=== PATIENT | female | born 1965 | race American Indian/Alaskan Native ===

== ENCOUNTER 2018-06-06 09:42 | Inpatient (IN) | payer MEDICAID ==
[2018-06-06 11:10] LABS: Basophils % (Auto) 0.8 % (0.0-1.8); Eosinophils # (Auto) 0.1 K/mm3 (0.0-0.4); Hematocrit 44.4 % (30.3-42.9); Hemoglobin 14.9 gm/dl (10.1-14.3); Lymphocytes # (Auto) 2.4 K/mm3 (1.2-5.4); Lymphocytes % (Auto) 41.3 % (13.4-35.0); Mean Corpuscular HGB Conc 34 % (30-34); Mean Corpuscular Volume 86 fl (79-97); Monocytes # (Auto) 0.4 K/mm3 (0.0-0.8); Monocytes % (Auto) 6.3 % (0.0-7.3); Platelet Count 349 K/mm3 (140-440); Red Blood Count 5.16 M/mm3 (3.65-5.03); Red Cell Distribution Width 14.9 % (13.2-15.2)
[2018-06-06 11:14] LABS: INR 0.93 (0.87-1.13)
[2018-06-06 11:27] LABS: Partial Thromboplastin Time 27.4 Sec. (24.2-36.6)
[2018-06-06] MEDS: MORPHINE IV PRN ×3 (11:28→23:30)
[2018-06-06] MEDS: NACL 0.9% 1000 ML 1,000 ML IV SCH ×2 (11:30→23:30)
[2018-06-06 11:39] LABS: Alanine Aminotransferase 27 units/L (7-56); Albumin 3.8 g/dL (3.9-5); BUN/Creatinine Ratio 9; Blood Urea Nitrogen 7 mg/dL (7-17); Calcium 9.1 mg/dL (8.4-10.2); Hemolysis Index 16; LDL Cholesterol,Direct 181 mg/dL (50-130)
--- NOTE | 2018-06-06 11:39 | History and Physical Report ---
History of Present Illness Date of examination: 06/06/18 Date of admission: 06/06/18 10:22 Chief complaint: C/o diarrhea and fatigue History of present illness: Patient is a 53y/o female with PMH of Diverticulitis presented to my clinic with c/o abdominal pain, diarrhea, fatigue and loss of appetite for the past 5 days. Abdominal pain is cramping in nature, severity is 10/10, radiates to the back occasionally, no aggravating or relieving factors. Has had 6 loose stools in the past 1 day. No blood in stool. No N/V. No fever. Denies any weight loss or alteration in bowel habits. Direct admission was ordered as she is progressively feeling weak. Patient was advised on having colonoscopy last year but travelled out of [facility], she said, for a long time for which she could not have the colonoscopy. Past History Past Medical History: hypertension, other (diverticulitis) Social history: denies: smoking, alcohol abuse Family history: no significant family history Medications and Allergies Allergies Allergy/AdvReac Type Severity Reaction Status Date / Time No Known Allergies Allergy Verified 06/06/18 10:11 Home Medications Medication Instructions Recorded Confirmed Last Taken Type Divalproex Sodium [Depakote] 06/06/18 1 Day Ago History ~06/05/18 QUEtiapine [SEROquel] 200 mg PO 06/06/18 1 Day Ago History ~06/05/18 Quetiapine Fumarate [Seroquel] 400 mg PO QHS 06/06/18 06/06/18 1 Day Ago History ~06/05/18 Active Meds: Active Medications Sodium Chloride (Nacl 0.9% 1000 Ml) 1,000 mls @ 75 mls/hr IV DIRECT KENNY Last Admin: 06/06/18 11:30 Dose: 75 mls/hr Documented by: Ceftriaxone Sodium (Rocephin/Ns 1 Gm/50 Ml) 1 gm in 50 mls @ 100 mls/hr IV Q24HR KENNY; Protocol Metronidazole (Flagyl 500 Mg/100 Ml) 500 mg in 100 mls @ 100 mls/hr IV Q8HR KENNY; Protocol Morphine Sulfate (Morphine) 2 mg IV Q6H PRN PRN Reason: Pain, Moderate (4-6) Last Admin: 06/06/18 11:28 Dose: 2 mg Documented by: Review of systems Constitutional: Well Nourished and Well developed. Head: NC/ AT Eyes: Denies any visual impairments. No discharge from the eyes Nose: Denies any rhinorrhea or epistaxis Throats: Denies any post nasal drainage. Ears: Denies any hearing deficits Cardiovascular system: Denies any chest pain, shortness of breath, orthopnea, paroxysmal nocturnal dyspnea, or palpitation. Respiratory system: Denies any cough, difficulty breathing, wheezing, pleuritic chest pain, Gastrointestinal system: As abdominal pain with diarrhea. No, nausea vomiting, hematemesis or melena. Neurological system: Denies any headache, slurred speech, facial droop, lateralizing weakness Genitalia system: Denies any dysuria, urinary frequency or urgency, urethral discharge Skin: No rashes, hyperpigmented spots. Hematological: Denies any cervical tenderness hemorrhages or petechia. Immunological: Denies any multiple septic spots, Lymphatic: Denies any generalized lymphadenopathy. Endocrine: Denies any polyuria, polydipsia, polyphagia. No heat or cold intolerance. Musculoskeletal system: No joint pain or swelling. Psych: No visual, tactile, auditory or hallucination Exam - Physical Exam Narrative exam: Constitutional: Well-nourished well-developed. In no distress Head: Normocephalic atraumatic Eyes: Pupils are equal round and reactive to light Nose: No enlarged turbinates, no septal deviation. Mouth: Moist mucous membranes. Neck: Supple no thyromegaly. No bruit. No JVD Heart: Regular rate and rhythm, S1-S2 normal. No rubs murmurs or gallop Lungs: Clear to auscultation bilaterally. no rales or rhonchi Abdomen: Soft, nontender. Bowel sound are present. Extremities: No edema, no cyanosis, no clubbing. Neuro: Alert oriented Oriented x3. No focal sensory or motor deficit. Skin: No rashes or hyperpigmented spots Musculoskeletal system: No joint pain or swelling Hematological: No petechia or subcutanous hemorrhages. Immunological: No multiple septic spots on the skin Lymphatic: No generalized lymphadenopathy Psychiatry: Euthymic. Calm. Results - Labs CBC & Chem 7: 06/07/18 04:41 06/07/18 04:41 Labs: Abnormal lab results 06/06/18 Range/Units 10:37 RBC 5.16 H (3.65-5.03) M/mm3 Hgb 14.9 H (10.1-14.3) gm/dl Hct 44.4 H (30.3-42.9) % Lymph % (Auto) 41.3 H (13.4-35.0) % Assessment and Plan Patient is a 53y/o female with PMH of Diverticulitis presented to my clinic with c/o abdominal pain, diarrhea, fatigue and loss of appetite for the past 5 days. Abdominal pain is cramping in nature, severity is 10/10, radiates to the back occasionally, no aggravating or relieving factors. Has had 6 loose stools in the past 1 day. No blood in stool. No N/V. No fever. Denies any weight loss or alteration in bowel habits. Direct admission was ordered as she is progressively feeling weak. -Abdominal pain CT scan shows evidence of a transverse colon lesion measuring 2.7 cm Obtain GI consult - Diverticulosis with mild diverticulitis Continue with IV Levaquin and Flagyl - Diarrhea Has had 6-7 loose bowel motions NPO, IVF No hematochezia Stool studies - Severe hyperlipidemia Place patient on statins - Hyperglycemia Obtain A1c Glasses, and her diet - DVT prophylaxis Subcutaneous heparin Spent over 35 minutes during this admission process involving in direct patient care, and review of laboratory and radiological data and discussing management plan with the patient
[2018-06-06 12:00] LABS: Chol/HDL Ratio 6.96 %; HDL Cholesterol 33 mg/dL (40-59)
--- NOTE | 2018-06-06 14:43 | Cat Scan Report ---
FINAL REPORT PROCEDURE: CT ABDOMEN PELVIS WO CON TECHNIQUE: Computerized axial tomography of the abdomen and pelvis was performed without intravenous contrast. This study is performed without intravascular contrast material and its sensitivity for ab dominal and pelvic pathology, including neoplasms, inflammation, abscess, free fluid, thrombosis, art erial dissection and infarction, is reduced compared with a contrast enhanced study. HISTORY: ACUTE DIVERTICULITIS, ABD PAIN COMPARISON: No prior studies are available for comparison. FINDINGS: Lower Lung li: There is minimal emphysematous changes seen in the lung bases as well as a small a mount of dependent atelectasis. Upper Abdomen: The liver, gallbladder, the adrenal glands, the pancreas and spleen are unremarkable. Kidneys, Ureters and Urinary bladder: There is a nonobstructing 3 millimeter calculus midportion left kidney. The kidneys, the ureters and urinary bladder otherwise are unremarkable. Retroperitoneum: Atherosclerotic changes are seen in the abdominal aorta. No aneurysm is visualized. Nonspecific subcentimeter lymph nodes are seen in the retroperitoneum. No pathologically enlarged lym ph nodes are identified. Bowel: Mild diverticulosis seen in the sigmoid colon without evidence of diverticulitis. There also a few scattered diverticuli in the descending colon. On axial image number 43 series 2 and a few of th e adjacent images there is a 2.7 centimeter long segment of narrowing in the transverse colon just pr oximal to the splenic flexure. The simon appear to be diffusely thickened producing an apple-core typ e lesion. I cannot exclude malignancy in the distal transverse colon. This is also visualized on sagi ttal reconstruction 67 series 601. I do not see evidence of bowel obstruction. Bowel loops otherwise are unremarkable. No ascites or free intraperitoneal gas is seen. An abscess is not identified. The a ppendix is not visualized. Reproductive organs: Uterus is surgically absent. No abnormal adnexal masses are seen. Other: No acute bony abnormalities are identified. IMPRESSION: Mild colonic diverticulosis as described. I do not see evidence of diverticulitis. Abnormal appearance distal transverse colon just proximal to the splenic flexure as described. There appears to be an apple-core type lesion which can be associated with malignancy. Further evaluation i s recommended. Consider barium enema or colonoscopy for further evaluation. Prior hysterectomy. Small nonobstructing calculus left kidney. Minimal emphysematous changes seen in the lung bases..
[2018-06-06] MEDS: ZOFRAN IV PRN ×2 (14:45→21:53)
[2018-06-06] MEDS: ROCEPHIN/NS 1 GM/50 ML 1 GM/50 ML BAG IV SCH (14:46)
[2018-06-06] MEDS: FLAGYL 500 MG/100 ML 500 MG/100 ML BAG IV SCH ×2 (14:49→21:53)
[2018-06-06] MEDS ORDERED: ZOFRAN IV PRN (21:51)
[2018-06-06] MEDS: PEPCID IV SCH (23:30)
[2018-06-07] MEDS: FLAGYL 500 MG/100 ML 500 MG/100 ML BAG IV SCH ×3 (05:55→21:13)
[2018-06-07 06:07] LABS: Hematocrit 32.9 % (30.3-42.9); Hemoglobin 10.9 gm/dl (10.1-14.3); Mean Corpuscular HGB Conc 33 % (30-34); Mean Corpuscular Volume 87 fl (79-97); Platelet Count 254 K/mm3 (140-440); Red Cell Distribution Width 14.7 % (13.2-15.2)
[2018-06-07] MEDS: NACL 0.9% 1000 ML 1,000 ML IV SCH ×2 (06:08→17:15)
[2018-06-07] MEDS: MORPHINE IV PRN ×3 (06:08→21:11)
[2018-06-07 06:33] LABS: Alanine Aminotransferase 18 units/L (7-56); Albumin 2.8 g/dL (3.9-5); BUN/Creatinine Ratio 11; Blood Urea Nitrogen 8 mg/dL (7-17); Calcium 7.3 mg/dL (8.4-10.2); Hemolysis Index 26
[2018-06-07 07:51] LABS: Basophils % (Manual) 0 % (0.0-1.8); Myelocytes # (Manual) 0.1 K/mm3; Platelet Estimate Appe; Total Cells Counted 100
--- NOTE | 2018-06-07 08:18 | Progress Note ---
Assessment and Plan Patient is a 53y/o female with PMH of Diverticulitis presented to my clinic with c/o abdominal pain, diarrhea, fatigue and loss of appetite for the past 5 days. Abdominal pain is cramping in nature, severity is 10/10, radiates to the back occasionally, no aggravating or relieving factors. Has had 6 loose stools in the past 1 day. No blood in stool. No N/V. No fever. Denies any weight loss or alteration in bowel habits. Direct admission was ordered as she is progressively feeling weak. -Abdominal pain CT scan shows evidence of a transverse colon lesion measuring 2.7 cm Obtain GI consult for possible colonoscopy - Diverticulosis without diverticulitis Continue with IV Levaquin and Flagyl - Diarrhea Has had 6-7 loose bowel motions NPO, IVF No hematochezia Stool studies - Hypokalemia Supplement rechek K and - Severe hyperlipidemia Place patient on statins - T2DM - new onst A1c 6.6 % SSI consistent CHO diet Diabetic education - DVT prophylaxis Subcutaneous heparin Spent over 32 minutes during this Subjective Date of service: 06/07/18 Principal diagnosis: lower Abdominal pain and diarrhea Interval history: No more diarrhea Objective - Exam Narrative Exam: Constitutional: Well-nourished well-developed. In no distress Head: Normocephalic atraumatic Eyes: Pupils are equal round and reactive to light Nose: No enlarged turbinates, no septal deviation. Mouth: Moist mucous membranes. Neck: Supple no thyromegaly. No bruit. No JVD Heart: Regular rate and rhythm, S1-S2 normal. No rubs murmurs or gallop Lungs: Clear to auscultation bilaterally. no rales or rhonchi Abdomen: Soft, lower abdominal tendernes. Bowel sound are present. Extremities: No edema, no cyanosis, no clubbing. Neuro: Alert oriented Oriented x3. No focal sensory or motor deficit. Skin: No rashes or hyperpigmented spots Musculoskeletal system: No joint pain or swelling Hematological: No petechia or subcutanous hemorrhages. Immunological: No multiple septic spots on the skin Lymphatic: No generalized lymphadenopathy Psychiatry: Euthymic. Calm. - Constitutional Vitals: Vital Signs - 12hr 06/06/18 06/07/18 06/07/18 20:40 00:13 05:58 Temperature 98.2 F 98.2 F 98.2 F Pulse Rate 95 H 96 H 87 Respiratory 18 18 18 Rate Blood Pressure 106/80 111/69 114/71 O2 Sat by Pulse 100 96 100 Oximetry - Labs CBC & Chem 7: 06/08/18 04:52 06/08/18 04:52 Labs: Abnormal lab results 06/06/18 06/06/18 06/06/18 Range/Units 10:37 10:37 10:38 WBC (4.5-11.0) K/mm3 RBC 5.16 H (3.65-5.03) M/mm3 Hgb 14.9 H (10.1-14.3) gm/dl Hct 44.4 H (30.3-42.9) % Lymph % (Auto) 41.3 H (13.4-35.0) % Lymphocytes % (Manual) (13.4-35.0) % Potassium (3.6-5.0) mmol/L Chloride (98-107) mmol/L Carbon Dioxide (22-30) mmol/L Glucose 124 H (65-100) mg/dL Hemoglobin A1c 6.6 H (4-6) % Calcium (8.4-10.2) mg/dL Total Protein (6.3-8.2) g/dL Albumin 3.8 L (3.9-5) g/dL Triglycerides 229 H (2-149) mg/dL Cholesterol 230 H (50-199) mg/dL LDL Cholesterol Direct 181 H (50-130) mg/dL HDL Cholesterol 33 L (40-59) mg/dL 06/07/18 06/07/18 Range/Units 04:41 04:41 WBC 4.4 L (4.5-11.0) K/mm3 RBC (3.65-5.03) M/mm3 Hgb (10.1-14.3) gm/dl Hct (30.3-42.9) % Lymph % (Auto) (13.4-35.0) % Lymphocytes % (Manual) 46.0 H (13.4-35.0) % Potassium 3.4 L (3.6-5.0) mmol/L Chloride 110.4 H (98-107) mmol/L Carbon Dioxide 20 L (22-30) mmol/L Glucose 107 H (65-100) mg/dL Hemoglobin A1c (4-6) % Calcium 7.3 L D (8.4-10.2) mg/dL Total Protein 5.3 L D (6.3-8.2) g/dL Albumin 2.8 L (3.9-5) g/dL Triglycerides (2-149) mg/dL Cholesterol (50-199) mg/dL LDL Cholesterol Direct (50-130) mg/dL HDL Cholesterol (40-59) mg/dL
[2018-06-07] MEDS ORDERED: D50W (25GM) Syringe IV PRN (08:23)
[2018-06-07] MEDS: ROCEPHIN/NS 1 GM/50 ML 1 GM/50 ML BAG IV SCH (09:38)
[2018-06-07] MEDS: PEPCID IV SCH (09:38)
[2018-06-07] MEDS: HEPARIN SUB-Q SCH ×2 (09:39→13:19)
[2018-06-07] MEDS: KCL 10MEQ/100ML 10 MEQ/100 ML BAG IV SCH ×3 (09:46→12:00)
[2018-06-07] MEDS: HumaLOG SUB-Q SCH ×3 (11:30→22:00)
--- NOTE | 2018-06-07 12:43 | Gastroenterology Consultation ---
Addendum entered and electronically signed by ROBYN BERKOWITZ MD 06/07/18 16:16: Patient seen and examined on 06/07/2018. 53 yo female with h/o diverticulitis and HTN admitted for abdominal pain. CT notable for abnormal lesion in transverse colon. Will plan for colonoscopy to rule out malignancy. Original Note: History of Present Illness - Reason for Consult Consult date: 06/07/[address], colon lesion Requesting physician: SIDDHARTHA MENDEZ - History of Present Illness Patient is a 53 y/o female with PMH of diverticulitis and HTN who presented with c/o abdominal pain, diarrhea, fatigue, and loss of appetite. Upon admission, abd CT showed an abnormal lesion in distal transverse colon concerning for malignancy to which GI has been consulted. This morning patient was resting in bed w/o acute distress. She reports lower abdominal pain described as cramping x approximately 2 months. Admits to chronic constipation for several years with BM x 1/day, but states stools are now loose (no change in frequency; last BM was 2 days ago). No recent abx therapy or ill contacts, but recent traveled back from [place] on 05/31. Denies fever, CP, SOB, wt loss, N/V, or signs of bleeding. No previous colonoscopy. No hx of IBD. No known Fhx of colon cancer. Past History Past Medical History: hypertension, other (diverticulitis) Social history: denies: smoking, alcohol abuse Family history: no significant family history Medications and Allergies Allergies Allergy/AdvReac Type Severity Reaction Status Date / Time No Known Allergies Allergy Verified 06/06/18 10:11 Home Medications Medication Instructions Recorded Confirmed Last Taken Type Divalproex Sodium [Depakote] 06/06/18 1 Day Ago History ~06/05/18 QUEtiapine [SEROquel] 200 mg PO 06/06/18 1 Day Ago History ~06/05/18 Quetiapine Fumarate [Seroquel] 400 mg PO QHS 06/06/18 06/06/18 1 Day Ago History ~06/05/18 Active Meds: Active Medications Atorvastatin Calcium (Lipitor) 40 mg PO QHS [facility] Last Admin: 06/06/18 21:53 Dose: 40 mg Documented by: Dextrose (D50w (25gm) Syringe) 50 ml IV PRN PRN PRN Reason: Hypoglycemia Divalproex Sodium (Depakote Dr) 125 mg PO BID [facility] Famotidine (Pepcid) 20 mg IV QDAY [facility] Last Admin: 06/07/18 09:38 Dose: 20 mg Documented by: Heparin Sodium (Porcine) (Heparin) 5,000 unit SUB-Q Q8HR [facility] Last Admin: 06/07/18 09:39 Dose: 5,000 unit Documented by: Sodium Chloride (Nacl 0.9% 1000 Ml) 1,000 mls @ 75 mls/hr IV DIRECT [facility] Last Admin: 06/07/18 06:08 Dose: 75 mls/hr Documented by: Ceftriaxone Sodium (Rocephin/Ns 1 Gm/50 Ml) 1 gm in 50 mls @ 100 mls/hr IV Q24HR [facility]; Protocol Last Admin: 06/07/18 09:38 Dose: 100 mls/hr Documented by: Metronidazole (Flagyl 500 Mg/100 Ml) 500 mg in 100 mls @ 100 mls/hr IV Q8HR [facility]; Protocol Last Admin: 06/07/18 05:55 Dose: 100 mls/hr Documented by: Insulin Human Lispro (Humalog) 0 unit SUB-Q ACHS [facility]; Protocol Last Admin: 06/07/18 11:30 Dose: Not Given Documented by: Morphine Sulfate (Morphine) 2 mg IV Q6H PRN PRN Reason: Pain, Moderate (4-6) Last Admin: 06/07/18 06:08 Dose: 2 mg Documented by: Ondansetron HCl (Zofran) 4 mg IV Q6H PRN PRN Reason: Nausea And Vomiting Polyethylene Glycol/Electrolytes (Golytely) 4,000 ml PO ONCE ONE Stop: 06/07/18 14:01 Potassium Chloride (K-Dur) 40 meq PO BID [facility] Quetiapine Fumarate (Seroquel) 400 mg PO QHS [facility] Last Admin: 06/06/18 23:30 Dose: 400 mg Documented by: Quetiapine Fumarate (Seroquel) 200 mg PO DAILY [facility] Last Admin: 06/07/18 09:38 Dose: 200 mg Documented by: medications reviewed/updated as required Review of Systems - Review of Systems All systems: negative Constitutional: fatigue, weakness, poor appetite Gastrointestinal: abdominal pain (cramping), other (loose stool) Exam - Constitutional Vital Signs: Temp Pulse Resp BP Pulse Ox 98.2 F 87 18 114/71 100 06/07/18 05:58 06/07/18 05:58 06/07/18 05:58 06/07/18 05:58 06/07/18 05:58 General appearance: no acute distress - EENT Eyes: PERRL, EOM intact ENT: hearing intact - Respiratory Respiratory: bilateral: CTA - Cardiovascular Rhythm: regular Heart Sounds: Present: S1 & S2 - Gastrointestinal General gastrointestinal: Present: soft, non-tender, non-distended, normal bowel sounds - Neurologic Neurological: alert and oriented x3 - Labs CBC & Chem 7: 06/07/18 04:41 06/07/18 04:41 Lab Results: Laboratory Results - last 24 hr 06/06/18 06/06/18 06/07/18 10:37 10:38 04:41 WBC 4.4 L RBC 3.80 Hgb 10.9 D Hct 32.9 D MCV 87 MCH 29 MCHC 33 RDW 14.7 Plt Count 254 Lymph % (Auto) Animal Husbandry Worker Add Manual Diff Complete Total Counted 100 Seg Neutrophils % Animal Husbandry Worker Seg Neuts % (Manual) 42.0 Band Neutrophils % 0 Lymphocytes % (Manual) 46.0 H Reactive Lymphs % (Man) 0 Monocytes % (Manual) 3.0 Eosinophils % (Manual) 4.0 Basophils % (Manual) 0 Metamyelocytes % 2.0 Myelocytes % 3.0 Promyelocytes % 0 Blast Cells % 0 Nucleated RBC % Not Reportable Seg Neutrophils # Man 1.8 Band Neutrophils # 0.0 Lymphocytes # (Manual) 2.0 Abs React Lymphs (Man) 0.0 Monocytes # (Manual) 0.1 Eosinophils # (Manual) 0.2 Basophils # (Manual) 0.0 Metamyelocytes # 0.1 Myelocytes # 0.1 Promyelocytes # 0.0 Blast Cells # 0.0 WBC Morphology Not Reportable Hypersegmented Neuts Not Reportable Hyposegmented Neuts Not Reportable Hypogranular Neuts Not Reportable Smudge Cells Not Reportable Toxic Granulation Not Reportable Toxic Vacuolation Not Reportable Dohle Bodies Not Reportable Pelger-Huet Anomaly Not Reportable Phil Rods Not Reportable Platelet Estimate Appe Clumped Platelets Not Reportable Plt Clumps, EDTA Not Reportable Large Platelets Not Reportable Giant Platelets Not Reportable Platelet Satelliting Not Reportable Plt Morphology Comment Not Reportable RBC Morphology Not Reportable Dimorphic RBCs Not Reportable Polychromasia Not Reportable Hypochromasia Not Reportable Poikilocytosis Not Reportable Anisocytosis Not Reportable Microcytosis Few Macrocytosis Not Reportable Spherocytes Not Reportable Pappenheimer Bodies Not Reportable Sickle Cells Not Reportable Target Cells Not Reportable Tear Drop Cells Not Reportable Ovalocytes Not Reportable Helmet Cells Not Reportable [place] Holiday Bodies Not Reportable [place] Rings Not Reportable Kedar Cells Not Reportable Bite Cells Not Reportable Crenated Cell Not Reportable Elliptocytes Not Reportable Acanthocytes (Spur) Not Reportable Rouleaux Not Reportable Hemoglobin C Crystals Not Reportable Schistocytes Not Reportable Malaria parasites Not Reportable Ming Bodies Not Reportable Hem Pathologist Commnt No Sodium Potassium Chloride Carbon Dioxide Anion Gap BUN Creatinine Estimated GFR BUN/Creatinine Ratio Glucose POC Glucose Hemoglobin A1c 6.6 H Calcium Total Bilirubin AST ALT Alkaline Phosphatase Total Protein Albumin Albumin/Globulin Ratio Amylase 83 Lipase 06/07/18 06/07/18 04:41 11:18 WBC RBC Hgb Hct MCV MCH MCHC RDW Plt Count Lymph % (Auto) Add Manual Diff Total Counted Seg Neutrophils % Seg Neuts % (Manual) Band Neutrophils % Lymphocytes % (Manual) Reactive Lymphs % (Man) Monocytes % (Manual) Eosinophils % (Manual) Basophils % (Manual) Metamyelocytes % Myelocytes % Promyelocytes % Blast Cells % Nucleated RBC % Seg Neutrophils # Man Band Neutrophils # Lymphocytes # (Manual) Abs React Lymphs (Man) Monocytes # (Manual) Eosinophils # (Manual) Basophils # (Manual) Metamyelocytes # Myelocytes # Promyelocytes # Blast Cells # WBC Morphology Hypersegmented Neuts Hyposegmented Neuts Hypogranular Neuts Smudge Cells Toxic Granulation Toxic Vacuolation Dohle Bodies Pelger-Huet Anomaly Phil Rods Platelet Estimate Clumped Platelets Plt Clumps, EDTA Large Platelets Giant Platelets Platelet Satelliting Plt Morphology Comment RBC Morphology Dimorphic RBCs Polychromasia Hypochromasia Poikilocytosis Anisocytosis Microcytosis Macrocytosis Spherocytes Pappenheimer Bodies Sickle Cells Target Cells Tear Drop Cells Ovalocytes Helmet Cells [place] Holiday Bodies [place] Rings Kedar Cells Bite Cells Crenated Cell Elliptocytes Acanthocytes (Spur) Rouleaux Hemoglobin C Crystals Schistocytes Malaria parasites Ming Bodies Hem Pathologist Commnt Sodium 141 Potassium 3.4 L Chloride 110.4 H Carbon Dioxide 20 L Anion Gap 14 BUN 8 Creatinine 0.7 Estimated GFR > 60 BUN/Creatinine Ratio 11 Glucose 107 H POC Glucose 124 H Hemoglobin A1c Calcium 7.3 L D Total Bilirubin < 0.20 AST 14 ALT 18 Alkaline Phosphatase 64 Total Protein 5.3 L D Albumin 2.8 L Albumin/Globulin Ratio 1.1 Amylase Lipase Assessment and Plan 1.abnormal CT 2.colon lesion? 3.abdominal pain -afebrile -WBC WNL -H/H WNL (10.9/32.9) -abd CT showed mild diverticulosis (no evidence of diverticulitis) and an abnormal lesion in distal transverse colon concerning for malignancy -clinically patient is stable. Reports continued mild lower abd pain described as cramping. Denies N/V or signs of bleeding. -will schedule for a colonoscopy tomorrow for further evaluation -clear liquids today, then NPO after MN -continue supportive care -will follow 4.loose stool -improving -stool studies pending
[2018-06-07] MEDS: K-DUR PO SCH ×2 (13:18→21:11)
[2018-06-07] MEDS ORDERED: GOLYTELY PO ONE (14:00)
[2018-06-07] MEDS ORDERED: NON-FORMULARY (Quetiapine Fumarate [Seroquel] 400 MG) PO SCH (22:00)
[2018-06-08] MEDS: MORPHINE IV PRN ×4 (03:26→22:53)
[2018-06-08] MEDS: NACL 0.9% 1000 ML 1,000 ML IV SCH ×2 (03:26→12:04)
[2018-06-08 05:25] LABS: Basophils % (Auto) 0.8 % (0.0-1.8); Eosinophils # (Auto) 0.1 K/mm3 (0.0-0.4); Eosinophils % (Auto) 2.5 % (0.0-4.3); Hematocrit 37.7 % (30.3-42.9); Hemoglobin 12.9 gm/dl (10.1-14.3); Lymphocytes # (Auto) 2.5 K/mm3 (1.2-5.4); Lymphocytes % (Auto) 52.3 % (13.4-35.0); Mean Corpuscular HGB Conc 34 % (30-34); Mean Corpuscular Volume 85 fl (79-97); Monocytes # (Auto) 0.4 K/mm3 (0.0-0.8); Monocytes % (Auto) 7.8 % (0.0-7.3); Platelet Count 328 K/mm3 (140-440); Red Blood Count 4.43 M/mm3 (3.65-5.03); Red Cell Distribution Width 14.9 % (13.2-15.2)
[2018-06-08 06:44] LABS: Alanine Aminotransferase 21 units/L (7-56); Albumin 3.1 g/dL (3.9-5); BUN/Creatinine Ratio 5; Blood Urea Nitrogen 4 mg/dL (7-17); Calcium 8.3 mg/dL (8.4-10.2); Hemolysis Index 4
[2018-06-08] MEDS: HEPARIN SUB-Q SCH ×4 (06:47→21:21)
[2018-06-08] MEDS: FLAGYL 500 MG/100 ML 500 MG/100 ML BAG IV SCH ×3 (06:54→21:21)
[2018-06-08] MEDS: HumaLOG SUB-Q SCH ×4 (07:30→22:00)
--- NOTE | 2018-06-08 08:52 | Progress Note ---
Assessment and Plan Patient is a 53y/o female with PMH of Diverticulitis presented to my clinic with c/o abdominal pain, diarrhea, fatigue and loss of appetite for the past 5 days. Abdominal pain is cramping in nature, severity is 10/10, radiates to the back occasionally, no aggravating or relieving factors. Has had 6 loose stools in the past 1 day. No blood in stool. No N/V. No fever. Denies any weight loss or alteration in bowel habits. Direct admission was ordered as she is progressively feeling weak. -Abdominal pain CT scan shows evidence of a transverse colon lesion measuring 2.7 cm Obtain GI consult for possible colonoscopy - Transverse colonic lesion concerning for malignancy For colonoscopy. GI following - Diverticulosis without mild diverticulitis Continue with IV Levaquin and Flagyl - Diarrhea - improving No hematochezia Stool studies pending. pt not having bowel movt yet - Hypokalemia -corrrected Supplement rechek K and - Severe hyperlipidemia Patient on statins - T2DM - new onset A1c 6.6 % SSI consistent CHO diet Diabetic education - Tobacco abuse Tobacco cessation counselling was done - DVT prophylaxis Subcutaneous heparin Spent over 30 minutes during this encounter Subjective Date of service: 06/08/18 Principal diagnosis: lower Abdominal pain and diarrhea Interval history: No more diarrhea. Still having abdominal pain Objective - Exam Narrative Exam: Constitutional: Well-nourished well-developed. In no distress Head: Normocephalic atraumatic Eyes: Pupils are equal round and reactive to light Nose: No enlarged turbinates, no septal deviation. Mouth: Moist mucous membranes. Neck: Supple no thyromegaly. No bruit. No JVD Heart: Regular rate and rhythm, S1-S2 normal. No rubs murmurs or gallop Lungs: Clear to auscultation bilaterally. no rales or rhonchi Abdomen: Soft, lower abdominal tendernes. Bowel sound are present. Extremities: No edema, no cyanosis, no clubbing. Neuro: Alert oriented Oriented x3. No focal sensory or motor deficit. Skin: No rashes or hyperpigmented spots Musculoskeletal system: No joint pain or swelling Hematological: No petechia or subcutanous hemorrhages. Immunological: No multiple septic spots on the skin Lymphatic: No generalized lymphadenopathy Psychiatry: Euthymic. Calm. - Constitutional Vitals: Vital Signs - 12hr 06/07/18 06/07/1806/07/19 21:11 21:41 22:00 Temperature Pulse Rate Respiratory 20 20 20 Rate Respiratory 20 Rate [Abdomen] Blood Pressure O2 Sat by Pulse Oximetry 06/07/18 06/08/18 06/08/18 22:21 03:26 03:56 Temperature 98.1 F Pulse Rate 94 H Respiratory 20 20 20 Rate Respiratory Rate [Abdomen] Blood Pressure 97/56 O2 Sat by Pulse 94 Oximetry 06/08/18 05:08 Temperature 98.1 F Pulse Rate 83 Respiratory 18 Rate Respiratory Rate [Abdomen] Blood Pressure 114/68 O2 Sat by Pulse 95 Oximetry - Labs CBC & Chem 7: 06/08/18 04:52 06/08/18 04:52 Labs: Abnormal lab results 06/07/18 06/07/18 06/08/18 Range/Units 11:18 20:39 04:52 Lymph % (Auto) 52.3 H (13.4-35.0) % [place] % (Auto) 7.8 H (0.0-7.3) % Seg Neutrophils % 36.6 L (40.0-70.0) % Chloride (98-107) mmol/L BUN (7-17) mg/dL POC Glucose 124 H 131 H (70-105) Calcium (8.4-10.2) mg/dL Total Protein (6.3-8.2) g/dL Albumin (3.9-5) g/dL 06/08/18 Range/Units 04:52 Lymph % (Auto) (13.4-35.0) % [place] % (Auto) (0.0-7.3) % Seg Neutrophils % (40.0-70.0) % Chloride 109.6 H (98-107) mmol/L BUN 4 L (7-17) mg/dL POC Glucose (70-105) Calcium 8.3 L (8.4-10.2) mg/dL Total Protein 5.9 L (6.3-8.2) g/dL Albumin 3.1 L (3.9-5) g/dL
[2018-06-08] MEDS: ROCEPHIN/NS 1 GM/50 ML 1 GM/50 ML BAG IV SCH (09:52)
[2018-06-08] MEDS: PEPCID IV SCH (09:53)
[2018-06-08] MEDS: K-DUR PO SCH ×2 (10:00→21:20)
[2018-06-08] MEDS ORDERED: NACL 0.9% 1000 ML 1,000 ML IV SCH (14:00)
[2018-06-08] MEDS ORDERED: DIPRIVAN 10 MG/ML IV ONE ×3 (15:32→15:48)
[2018-06-08] MEDS ORDERED: VERSED ONE (15:32)
[2018-06-08] MEDS ORDERED: XYLOCAINE 2% INFILTRATI ONE (15:32)
--- NOTE | 2018-06-08 16:44 | Anesthesia Day of Surgery ---
Anesthesia Day of Surgery - Day of Surgery Patient Examined: Yes Patient H&P Reviewed: Yes Patient is NPO: Yes Beta Blockers: No Cardiac Clearance: No Pulmonary Clearance: No
--- NOTE | 2018-06-08 16:44 | Anesthesia Consultation ---
Anesthesia Consult and Med Hx Date of service: 06/08/18 - Airway Anesthetic Teeth Evaluation: Poor ROM Head & Neck: Adequate Mental/Hyoid Distance: Adequate Mallampati Class: Class II Intubation Access Assessment: Probably Good - Pulmonary Exam CTA: Yes - Cardiac Exam Cardiac Exam: No Murmur - Pre-Operative Health Status ASA Pre-Surgery Classification: ASA3 Proposed Anesthetic Plan: MAC - Pulmonary Hx Smoking: Yes Hx Asthma: No Hx Pneumonia: No - Endocrine Hx End Stage Renal Disease: No Hx Non-Insulin Dependent Diabetes: Yes - Other Systems Hx Cancer: No
[2018-06-08] MEDS ORDERED: MORPHINE ONE (16:58)
--- NOTE | 2018-06-08 17:02 | Operative Report ---
Operative Report Operative Report: Date of procedure: 06/08/2018 Preprocedure diagnosis: abdominal pain, abnormal CT abdomen Post procedure diagnosis: transverse colon polyp Procedure: Colonoscopy with snare polypectomy Endoscopist: Madi Taylor MD Anesthesia: Monitored anesthesia care per anesthesia department Estimated blood loss: 0 Medications: Monitored anesthesia care. See separate report by anesthesia for details. After careful discussion of the nature and purpose of the procedure as well as details of the technique risks benefits and alternatives the patient gave consent. Please see recent history and physical from the office. The patient was placed in the left lateral decubitus position and medicated per anesthesia. A rectal exam was performed sphincter tone was normal there were no masses palpable. External hemorrhoids seen on external exam. The [employer] 570 scope was passed transanally and advanced under continuous direct vision without difficulty to the cecum. The prep quality was good. Findings: 1. A 7 mm sessile polyp in the cecum removed with cold snare polypectomy. 2. There were two 6-7 mm sessile polyps in the transverse colon removed with cold snare polypectomy. 3. There was no large lesions identified in the distal transverse colon proximal to the splenic flexure as described in the CT scan. 4. In the descending colon, there were four 6-7 mm sessile colon polyp removed with cold snare polypectomy. One 8 mm sessile polyp was removed with hot snare polypectomy and one endoclip was placed to prevent bleeding. 5. There was a 1 cm semipedunculated polyp, which could not be removed after several attempts with snare due to angulation. Multiple biopsies were obtained. This was adjacent to the endoclip placement site. 6. There were multiple 6-7 mm sessile polyps in the sigmoid colon. Two of them were removed with cold snare polypectomy. 7. Multiple sessile rectal polyps noted. Rest of the polyps could not be removed due to prolonged procedure time under anesthesia. 8. Internal hemorrhoids noted. The procedure was well-tolerated overall and the patient was observed in re covery. Conclusions: 1. A small polyp in the cecum removed with cold snare polypectomy. 2. There were two small polyps in the transverse colon removed with cold snare polypectomy. 3. There was no large lesions identified in the distal transverse colon proximal to the splenic flexure as described in the CT scan. 4. In the descending colon, there were four small colon polyp removed with cold snare polypectomy. One 8 mm sessile polyp was removed with hot snare polypectomy and one endoclip was placed to prevent bleeding. 5. There was a 1 cm semipedunculated polyp, which could not be removed after several attempts with snare due to angulation. Multiple biopsies were obtained. This was adjacent to the endoclip placement site. 6. There were multiple 6-7 mm sessile polyps in the sigmoid colon. Two of them were removed with cold snare polypectomy. 7. Multiple sessile rectal polyps noted. Rest of the polyps could not be removed due to prolonged procedure time under anesthesia. 8. Internal hemorrhoids noted. Plan: 1. Resume diet. 2. Follow up on the pathology results. 3. Ok for discharge per GI standpoint. 4. Will need follow up in outpatient GI clinic for repeat colonoscopy.
--- NOTE | 2018-06-08 21:53 | Discharge Summary ---
Providers - Providers Date of Admission: 06/06/18 10:22 Date of discharge: 06/08/18 Attending physician: SIDDHARTHA MENDEZ 06/06/18 18:09 Consult to Physician [CONS] Routine Comment: Consulting Provider: JUNIOR LANDERS Physician Instructions: Reason For Exam: Transverse colon lesion per CT abdomen and pelvis Primary care physician: SIDDHARTHA MENDEZ Hospitalization Reason for admission: Abdomninal pain with Pertinent studies: CT abdominal and pelvis that showed lesion in the transverse colon Procedures: Colonocopy iwth removal of multiple colonoc polyps. No mass seen in the transverse colon per CT Hospital course: Patient is a 53y/o female with PMH of Diverticulitis presented to my clinic with c/o abdominal pain, diarrhea, fatigue and loss of appetite for the past 5 days. Abdominal pain is cramping in nature, severity is 10/10, radiates to the back occasionally, no aggravating or relieving factors. Has had 6 loose stools in the past 1 day. No blood in stool. No N/V. No fever. Denies any weight loss or alteration in bowel habits. Direct admission was ordered as she is p rogressively feeling weak. Patient was advised on having colonoscopy last year but [place], she said, for a long time for which she could not have the colonoscopy. On admission pt was place on clear liquids, IVF b/c of the diarrhea, iv Levaquin an flagyl. Stool studies studies were ordered as well as CT abdomen and pelvis. Pt was not able to have any more bowel movement after admisision. CT report was remarkable for suspecious mass in the transverse colon . GI consult was obtained. Colonoscopy was done. Multiple sessile polyps identified in the transverse colon with no mass. A semipedunculated polyp was identified in the sigmoid colon. Cold snared polypectomyies were done. Few could not be removed as a result of prolonged time of procedure. GI recommended out pt f/u for biopsy report and removal of the remaining polyps. Abdominal pain had resolved as well as the diarrhea. Pt is therefore being discharged to f/u with me in 3-5day and the GI in 7 days. Tobacco cessation counselling was done. Disposition: - TO HOME OR SELFCARE Time spent for discharge: >35 min - Discharge Diagnoses (1) Colonic mass Status: Acute (2) Abdominal pain Status: Acute (3) Diarrhea Status: Acute (4) Diabetes mellitus Status: Acute (5) Tobacco use disorder Status: Acute (6) Hypokalemia Status: Acute Core Measure Documentation - Palliative Care Palliative Care/ Comfort Measures: Not Applicable - Core Measures Any of the following diagnoses?: none Exam - Physical Exam Narrative exam: Constitutional: Well-nourished well-developed. In no distress Head: Normocephalic atraumatic Eyes: Pupils are equal round and reactive to light Nose: No enlarged turbinates, no septal deviation. Mouth: Moist mucous membranes. Neck: Supple no thyromegaly. No bruit. No JVD Heart: Regular rate and rhythm, S1-S2 normal. No rubs murmurs or gallop Lungs: Clear to auscultation bilaterally. no rales or rhonchi Abdomen: Soft, lower abdominal tendernes - resolved. Bowel sound are present. Extremities: No edema, no cyanosis, no clubbing. Neuro: Alert oriented Oriented x3. No focal sensory or motor deficit. Skin: No rashes or hyperpigmented spots Musculoskeletal system: No joint pain or swelling Hematological: No petechia or subcutanous hemorrhages. Immunological: No multiple septic spots on the skin Lymphatic: No generalized lymphadenopathy Psychiatry: Euthymic. Calm. - Constitutional Vitals: Temp Pulse Resp BP Pulse Ox 98.2 F 75 19 156/78 100 06/08/18 16:36 06/08/18 17:08 06/08/18 17:08 06/08/18 17:08 06/08/18 17:08 Plan Weight Bearing Status: Weight Bear as Tolerated Diet: diabetic Follow up with: SIDDHARTHA MENDEZ MD [Primary Care Provider] - 7 Days Prescriptions: AtorvaSTATin [Lipitor] 40 mg PO QHS #30 tablet Glimepiride [Amaryl] 2 mg PO BID #60 tablet metFORMIN [Glucophage] 500 mg PO BID #60 tablet
[2018-06-09] MEDS: MORPHINE IV PRN (05:10)
[2018-06-09] MEDS: FLAGYL 500 MG/100 ML 500 MG/100 ML BAG IV SCH (05:11)
[2018-06-09] MEDS: HEPARIN SUB-Q SCH (05:11)
[2018-06-09] MEDS: NACL 0.9% 1000 ML 1,000 ML IV SCH (05:11)
[2018-06-09 06:00] VITALS: BP 123/79
[2018-06-09 07:36] LABS: Basophils # (Auto) 0.1 K/mm3 (0.0-0.1); Basophils % (Auto) 1.5 % (0.0-1.8); Eosinophils # (Auto) 0.1 K/mm3 (0.0-0.4); Eosinophils % (Auto) 2.3 % (0.0-4.3); Hematocrit 39.2 % (30.3-42.9); Lymphocytes # (Auto) 2.4 K/mm3 (1.2-5.4); Lymphocytes % (Auto) 39.7 % (13.4-35.0); Mean Corpuscular HGB Conc 33 % (30-34); Mean Corpuscular Volume 86 fl (79-97); Monocytes # (Auto) 0.5 K/mm3 (0.0-0.8); Monocytes % (Auto) 8.2 % (0.0-7.3); Platelet Count 354 K/mm3 (140-440); Red Blood Count 4.55 M/mm3 (3.65-5.03); Red Cell Distribution Width 14.9 % (13.2-15.2)
[2018-06-09 07:52] LABS: Alanine Aminotransferase 20 units/L (7-56); Albumin 3.3 g/dL (3.9-5); BUN/Creatinine Ratio 6; Blood Urea Nitrogen 5 mg/dL (7-17); Calcium 8.6 mg/dL (8.4-10.2); Hemolysis Index 6
== END 2018-06-09 10:30 | disposition home or self-care (01) | DRG 392 ==
LOC: 3A 09:42 → UNDOADMIN 09:42 → 3A 10:22
PROVIDERS: ADMIT Family Medicine; ATTEND Family Medicine
PROC: 0DBH8ZZ Excision of Cecum, Via Natural or Artificial Opening Endoscopic (ICD-10-PCS; principal; 2018-06-08)
PROC: 0DBL8ZZ Excision of Transverse Colon, Via Natural or Artificial Opening Endoscopic (ICD-10-PCS; 2018-06-08)
PROC: 0DBP8ZZ Excision of Rectum, Via Natural or Artificial Opening Endoscopic (ICD-10-PCS; 2018-06-08)
PROC: 0DBM8ZZ Excision of Descending Colon, Via Natural or Artificial Opening Endoscopic (ICD-10-PCS; 2018-06-08)
PROC: 0W3P8ZZ Control Bleeding in Gastrointestinal Tract, Via Natural or Artificial Opening Endoscopic (ICD-10-PCS; 2018-06-08)
PROC: 0DBN8ZX Excision of Sigmoid Colon, Via Natural or Artificial Opening Endoscopic, Diagnostic (ICD-10-PCS; 2018-06-08)
DX: K57.92 Diverticulitis of intestine, part unspecified, without perforation or abscess without bleeding (principal); R19.7 Diarrhea, unspecified; K57.30 Diverticulosis of large intestine without perforation or abscess without bleeding; E87.6 Hypokalemia; E78.5 Hyperlipidemia, unspecified; K63.9 Disease of intestine, unspecified; E11.65 Type 2 diabetes mellitus with hyperglycemia; D12.0 Benign neoplasm of cecum; K64.8 Other hemorrhoids; Z71.6 Tobacco abuse counseling; Z83.3 Family history of diabetes mellitus
CPT/HCPCS: 36415; 74176; 80053; 80061; 82150; 82962; 83036; 83690; 83735; 85007; 85025; 85610; 85730; 87177; 88305; 99406; G0378; A9270-GY; J0696; J1644; J2250; J2270; J2405; J2704; J3480; J7030

== ENCOUNTER 2019-02-06 14:41 | Emergency (ER) | payer MEDICAID ==
[2019-02-06] MEDS ORDERED: ATIVAN IM PRN (15:55)
[2019-02-06] MEDS ORDERED: HALDOL IM PRN (15:55)
--- NOTE | 2019-02-06 16:01 | Emergency Department Report ---
<JESSEE LUKE - Last Filed: 02/06/19 18:21> ED General Adult HPI - General Chief complaint: Psych Stated complaint: 1013 Time Seen by Provider: 02/06/19 15:11 - Related Data Home Medications Medication Instructions Recorded Confirmed Last Taken QUEtiapine [SEROquel] 200 mg PO QAM 06/06/18 02/06/19 1 Day Ago ~06/05/18 Quetiapine Fumarate [SEROquel] 400 mg PO QHS 06/06/18 02/06/19 1 Day Ago ~06/05/18 traZODone [Desyrel] 1 - 2 tab PO QHS PRN 02/06/19 02/06/19 Unknown Previous Rx's Medication Instructions Recorded Last Taken Type metFORMIN [Glucophage] 500 mg PO BID #60 tablet 06/08/18 Unknown Rx Allergies Allergy/AdvReac Type Severity Reaction Status Date / Time No Known Allergies Allergy Verified 06/06/18 10:11 ED Past Medical Hx - Medications Home Medications: Home Medications Medication Instructions Recorded Confirmed Last Taken Type QUEtiapine [SEROquel] 200 mg PO QAM 06/06/18 02/06/19 1 Day Ago History ~06/05/18 Quetiapine Fumarate [SEROquel] 400 mg PO QHS 06/06/18 02/06/19 1 Day Ago History ~06/05/18 metFORMIN [Glucophage] 500 mg PO BID #60 tablet 06/08/18 02/06/19 Unknown Rx traZODone [Desyrel] 1 - 2 tab PO QHS PRN 02/06/19 02/06/19 Unknown History ED Course - Reevaluation(s) Reevaluation #2: 02/06/19 18:21 Nurse reports patient is having acid reflux requesting medication. This provider prescribed Pepcid 20 mg by mouth 1 now. ED Medical Decision Making - Lab Data Result diagrams: 02/06/19 16:14 02/06/19 16:14 ED Disposition Clinical Impression: Medical clearance for psychiatric admission Disposition: [id number] PSY HOSP/PSY UNIT Condition: Stable Referrals: PRIMARY CARE, [Referring] - 3-5 Days <GONZALO SCHMIDT - Last Filed: 02/06/19 22:02> ED General Adult HPI - General Source: patient Mode of arrival: Ambulatory Limitations: No Limitations - History of Present Illness Initial comments: This is a 54-year-old female. This patient is not known to this provider previously. The patient is brought to the hospital with the vb net developer's office with a complaint of suicidality. The patient endorses not taking her psychiatric medications for months. She denies physical pain. She indicates that she would either like to hang herself or possibly run into traffic. She denies physical pain. She does not want to hurt other people. She denies urinary symptoms. -: Gradual Consistency: constant Improves with: none Worsens with: none ED Review of Systems ROS: Stated complaint: 1013 Other details as noted in HPI Constitutional: denies: fever Eyes: denies: eye discharge ENT: denies: congestion Respiratory: denies: wheezing Cardiovascular: denies: syncope Gastrointestinal: denies: abdominal pain Genitourinary: denies: dysuria Musculoskeletal: denies: back pain Skin: denies: lesions Neurological: denies: weakness Psychiatric: anxiety, depression, suicidal thoughts ED Past Medical Hx - Past Medical History Hx Congestive Heart Failure: No Hx Diabetes: No Hx Asthma: No - Social History Smoking Status: Current Every Day Smoker ED Physical Exam - General Limitations: No Limitations General appearance: alert, anxious, in distress, obese - Head Head exam: Present: atraumatic, normocephalic - Eye Eye exam: Present: normal appearance, PERRL, EOMI, other (visual acuity intact to finger counting, color perception, reading at a close distance). Absent: nystagmus - ENT ENT exam: Present: normal exam, normal orophraynx, mucous membranes moist, normal external ear exam - Neck Neck exam: Present: normal inspection, full ROM. Absent: tenderness, meningismus - Respiratory Respiratory exam: Present: normal lung sounds bilaterally. Absent: respiratory distress - Cardiovascular Cardiovascular Exam: Present: regular rate, normal rhythm, normal heart sounds. Absent: bradycardia, tachycardia, irregular rhythm, systolic murmur, diastolic murmur, rubs, gallop - GI/Abdominal GI/Abdominal exam: Present: soft. Absent: distended, tenderness, guarding, rebound, rigid, pulsatile mass - Extremities Exam Extremities exam: Present: normal inspection, full ROM, other (2+ pulses noted in the bilateral upper, lower extremities. There is no long bone tenderness. Musculoskeletal compartments are soft. The pelvis is stable.). Absent: pedal edema, calf tenderness - Back Exam Back exam: Present: normal inspection, full ROM. Absent: tenderness, CVA tenderness (R), CVA tenderness (L), paraspinal tenderness, vertebral tenderness - Neurological Exam Neurological exam: Present: alert, oriented X3, other (there is no facial droop. The tongue is midline. Extraocular movements are intact bilaterally. Patient speaking in full complete sentences. Shoulder shrug is intact bilaterally. Hearing is grossly intact bilaterally. Visual acuity intact to finger counting and color perception at a close distance. 5/5 strength 4 extremities. Sensation intact to light touch in 4 extremities.) - Psychiatric Psychiatric exam: Present: depressed, anxious, suicidal ideation - Skin Skin exam: Present: warm, dry, intact, normal color. Absent: rash ED Course Vital Signs 02/06/19 02/06/19 02/06/19 15:01 16:07 20:00 Temperature 98.1 F 98.1 F 97.9 F Pulse Rate 92 H 92 H 107 H Respiratory 18 18 Rate Blood Pressure 144/87 Blood Pressure 144/87 134/84 [Right] O2 Sat by Pulse 98 92 Oximetry - Reevaluation(s) Reevaluation #1: 02/06/19 16:00 Differential diagnosis, including not limited to: Suicidality, mood disorder, medication noncompliance, medical clearance for psychiatric placement Assessment and plan: 54-year-old female with complaint of painless suicidality. She does not appear to be in significant medical distress. She appears to be in emotional distress. 1013 is ordered. Psychiatric consultation ordered. Patient's medications will be continued. We have requested a psychiatric evaluation. Anticipate that patient will be deemed medically suitable for psychiatric placement once initial diagnostics have resulted. Reevaluation #3: 02/06/19 20:11 Laboratory studies are reviewed and appreciated. Patient does not appear to have an immediate medical contraindication to psychiatric admission, evaluation, consultation and placement at this time. ED Medical Decision Making - Lab Data Result diagrams: 02/06/19 16:14 02/06/19 16:14 Vital Signs 02/06/19 16:07 Temperature 98.1 F Pulse Rate 92 H Respiratory 18 Rate Blood Pressure 144/87 [Right] O2 Sat by Pulse 98 Oximetry Lab Results 02/06/19 02/06/19 02/06/19 Range/Units 16:14 16:14 16:14 WBC 5.9 (4.5-11.0) K/mm3 RBC 5.01 (3.65-5.03) M/mm3 Hgb 14.7 H (10.1-14.3) gm/dl Hct 45.0 H (30.3-42.9) % MCV 90 (79-97) fl MCH 29 (28-32) pg MCHC 33 (30-34) % RDW 14.8 (13.2-15.2) % Plt Count 288 (140-440) K/mm3 Sodium 139 (137-145) mmol/L Potassium 4.1 (3.6-5.0) mmol/L Chloride 101.1 (98-107) mmol/L Carbon Dioxide 22 (22-30) mmol/L Anion Gap 20 mmol/L BUN 8 (7-17) mg/dL Creatinine 1.1 (0.7-1.2) mg/dL Estimated GFR > 60 ml/min BUN/Creatinine Ratio 7 % Glucose 121 H (65-100) mg/dL Calcium 9.0 (8.4-10.2) mg/dL [place] 0.1 (0.0-1.2) mmol/L Plasma/Serum Alcohol (0-0.07) % 02/06/19 Range/Units 16:14 WBC (4.5-11.0) K/mm3 RBC (3.65-5.03) M/mm3 Hgb (10.1-14.3) gm/dl Hct (30.3-42.9) % MCV (79-97) fl MCH (28-32) pg MCHC (30-34) % RDW (13.2-15.2) % Plt Count (140-440) K/mm3 Sodium (137-145) mmol/L Potassium (3.6-5.0) mmol/L Chloride (98-107) mmol/L Carbon Dioxide (22-30) mmol/L Anion Gap mmol/L BUN (7-17) mg/dL Creatinine (0.7-1.2) mg/dL Estimated GFR ml/min BUN/Creatinine Ratio % Glucose (65-100) mg/dL Calcium (8.4-10.2) mg/dL [place] (0.0-1.2) mmol/L Plasma/Serum Alcohol < 0.01 (0-0.07) % - EKG Data -: EKG Interpreted by Me EKG shows normal: sinus rhythm Rate: normal - EKG Data 02/06/19 16:01 The EKG shows a sinus rhythm, 89 bpm, normal axis, QTC is 471 ms, there is motion artifact, there is T-wave inversion in V2, the EKG is abnormal, the EKG i s not consistent with ST elevation myocardial infarction. Critical care attestation.: If time is entered above; I have spent that time in minutes in the direct care of this critically ill patient, excluding procedure time. ED Disposition Is pt being admited?: No Does the pt Need Aspirin: No
[2019-02-06 16:32] LABS: Hemoglobin 14.7 gm/dl (10.1-14.3); Mean Corpuscular HGB Conc 33 % (30-34); Mean Corpuscular Volume 90 fl (79-97); Platelet Count 288 K/mm3 (140-440); Red Blood Count 5.01 M/mm3 (3.65-5.03); Red Cell Distribution Width 14.8 % (13.2-15.2)
[2019-02-06] MEDS ORDERED: AMARYL PO SCH (17:00)
[2019-02-06] MEDS ORDERED: GLUCOPHAGE PO SCH (17:00)
[2019-02-06 17:13] LABS: BUN/Creatinine Ratio 7; Blood Urea Nitrogen 8 mg/dL (7-17); Hemolysis Index 17
[2019-02-06] MEDS ORDERED: PEPCID PO ONE ×2 (18:20→18:27)
[2019-02-06 19:56] LABS: Bacteria,Urine 1+ /HPF (Negative); Bilirubin,Urine NEG (Negative); Blood,Urine NEG (Negative); Color,Urine Yellow (Yellow); Mucus,Urine FEW /HPF; Protein,Urine <15 mg/dL mg/dL (Negative); Urobilinogen,Urine < 2.0 mg/dL (<2.0)
[2019-02-06 20:04] LABS: Amphetamine Screen,Urine PRESUMPTIVE NEGATIVE; Benzodiazepines Screen,Urine PRESUMPTIVE NEGATIVE; Methadone Screen,Urine PRESUMPTIVE NEGATIVE; Opiate Screen,Urine PRESUMPTIVE NEGATIVE
[2019-02-06 20:16] LABS: Cannabinoid Screen,Urine PRESUMPTIVE POSITIVE; Cocaine Screen,Urine PRESUMPTIVE POSITIVE
[2019-02-06] MEDS ORDERED: MACROBID ONE (22:55)
[2019-02-06] MEDS ORDERED: MACROBID PO SCH (23:00)
[2019-02-07 02:07] VITALS: BP 98/66
[2019-02-07] MEDS ORDERED: ZESTRIL PO SCH (10:00)
== END 2019-02-07 05:31 ==
LOC: ED 14:41
DX: R45.851 Suicidal ideations (principal); F17.200 Nicotine dependence, unspecified, uncomplicated
CPT/HCPCS: 36415; 80048; 80164; 80178; 80307; 81001; 82550; 82962; 85027; 87086; 93005; 93010; 96372; 99285; A9270; J2060; 80320; G0480

== ENCOUNTER 2019-04-30 10:56 | Emergency (ER) | payer MEDICAID ==
[2019-04-30 12:12] VITALS: BP 134/88
--- NOTE | 2019-04-30 12:21 | Event Note ---
ED Screening Note ED Screening Note: states that she has lightheaded/dizziness and headache for three days states that her blood pressure was elevated at the mental health facility no n/v no vision changes hx of HTN- does not take any medication, schizophrenia, bipolar no SI/no HI no allergies to meds went through menopause This initial assessment/diagnostic orders/clinical plan/treatment(s) is/are subject to change based on patients health status, clinical progression and re- assessment by fellow clinical providers in the ED. Further treatment and workup at subsequent clinical providers discretion. Patient/guardian urged not to elope from the ED as their condition may be serious if not clinically assessed and managed. Initial orders include: labs, UA
[2019-04-30 13:10] LABS: Bacteria,Urine 1+ /HPF (Negative); Bilirubin,Urine NEG (Negative); Blood,Urine NEG (Negative); Color,Urine Yellow (Yellow); Mucus,Urine FEW /HPF; Protein,Urine <15 mg/dL mg/dL (Negative); Urobilinogen,Urine < 2.0 mg/dL (<2.0)
[2019-04-30 15:08] LABS: Basophils # (Auto) 0.1 K/mm3 (0.0-0.1); Basophils % (Auto) 0.8 % (0.0-1.8); Eosinophils # (Auto) 0.2 K/mm3 (0.0-0.4); Hematocrit 46.2 % (30.3-42.9); Hemoglobin 15.5 gm/dl (10.1-14.3); Lymphocytes # (Auto) 3.9 K/mm3 (1.2-5.4); Lymphocytes % (Auto) 48.4 % (13.4-35.0); Mean Corpuscular HGB Conc 34 % (30-34); Mean Corpuscular Volume 88 fl (79-97); Monocytes # (Auto) 0.5 K/mm3 (0.0-0.8); Monocytes % (Auto) 6.1 % (0.0-7.3); Platelet Count 351 K/mm3 (140-440); Red Blood Count 5.25 M/mm3 (3.65-5.03); Red Cell Distribution Width 15.3 % (13.2-15.2)
[2019-04-30 15:34] LABS: Alanine Aminotransferase 21 units/L (7-56); Albumin 4.1 g/dL (3.9-5); BUN/Creatinine Ratio 11; Blood Urea Nitrogen 12 mg/dL (7-17); Calcium 9.3 mg/dL (8.4-10.2); Hemolysis Index 21
--- NOTE | 2019-04-30 17:59 | Emergency Department Report ---
ED General Adult HPI - General Chief complaint: Medical Clearance Stated complaint: HBP Time Seen by Provider: 04/30/19 12:18 Source: patient Mode of arrival: Ambulatory Limitations: No Limitations - History of Present Illness Initial comments: cc: "My blood pressure was high. HPI: Mrs. Chris is a 54 yo female wit hx of schizoaffective disorder and bipolar disorder who presents with reported elevated blood pressure. Blood pressure was 154/131 according to her report. She has been told that she has had elevated blood pressure on previous occasion. She is not taking any antihypertensive medications. She has bitemporal throbbing headache and mild lightheadedness. Has had similar headache on previous occasion. -: Gradual, days(s) (3) Location: head Quality: aching Consistency: constant Improves with: none Worsens with: none Associated Symptoms: headaches - Related Data Home Medications Medication Instructions Recorded Confirmed Last Taken QUEtiapine [SEROquel] 200 mg PO QAM 06/06/18 02/06/19 1 Day Ago ~06/05/18 Quetiapine Fumarate [SEROquel] 400 mg PO QHS 06/06/18 02/06/19 1 Day Ago ~06/05/18 traZODone [Desyrel] 1 - 2 tab PO QHS PRN 02/06/19 02/06/19 Unknown Previous Rx's Medication Instructions Recorded Last Taken Type metFORMIN [Glucophage] 500 mg PO BID #60 tablet 06/08/18 Unknown Rx Allergies Allergy/AdvReac Type Severity Reaction Status Date / Time No Known Allergies Allergy Verified 06/06/18 10:11 ED Review of Systems ROS: Stated complaint: HBP Other details as noted in HPI Comment: All other systems reviewed and negative Constitutional: denies: fever, malaise Respiratory: denies: cough Cardiovascular: denies: chest pain Gastrointestinal: denies: abdominal pain, nausea Skin: denies: rash, lesions Neurological: headache. denies: numbness, paresthesias, confusion, abnormal gait, vertigo ED Past Medical Hx - Past Medical History Previous Medical History?: Yes Hx Congestive Heart Failure: No Hx Diabetes: No Hx Asthma: No Additional medical history: schizoaffective disorder bipolar disorder - Surgical History Past Surgical History?: No - Social History Smoking Status: Current Every Day Smoker Substance Use Type: None - Medications Home Medications: Home Medications Medication Instructions Recorded Confirmed Last Taken Type QUEtiapine [SEROquel] 200 mg PO QAM 06/06/18 02/06/19 1 Day Ago History ~06/05/18 Quetiapine Fumarate [SEROquel] 400 mg PO QHS 06/06/18 02/06/19 1 Day Ago History ~06/05/18 metFORMIN [Glucophage] 500 mg PO BID #60 tablet 06/08/18 02/06/19 Unknown Rx traZODone [Desyrel] 1 - 2 tab PO QHS PRN 02/06/19 02/06/19 Unknown History ED Physical Exam - General Limitations: No Limitations General appearance: alert, in no apparent distress, other (appears well comfortable) - Head Head exam: Present: atraumatic, normocephalic - Eye Eye exam: Present: normal appearance - ENT ENT exam: Present: mucous membranes moist - Neck Neck exam: Present: normal inspection, full ROM - Respiratory Respiratory exam: Present: normal lung sounds bilaterally. Absent: respiratory distress, wheezes, rales, rhonchi - Cardiovascular Cardiovascular Exam: Present: regular rate, normal rhythm, normal heart sounds. Absent: systolic murmur, diastolic murmur, rubs, gallop - GI/Abdominal GI/Abdominal exam: Present: soft, normal bowel sounds. Absent: distended, tenderness, guarding, rebound - Extremities Exam Extremities exam: Present: normal inspection - Back Exam Back exam: Present: normal inspection - Neurological Exam Neurological exam: Present: alert, oriented X3 - Psychiatric Psychiatric exam: Present: normal affect, normal mood - Skin Skin exam: Present: warm, dry, intact, normal color. Absent: rash ED Course Vital Signs 04/30/19 11:27 Temperature 98.0 F Pulse Rate 112 H Respiratory 19 Rate Blood Pressure 134/88 O2 Sat by Pulse 96 Oximetry ED Medical Decision Making - Lab Data Result diagrams: 04/30/19 14:35 04/30/19 14:35 Laboratory Results - last 24 hr 04/30/19 04/30/19 04/30/19 12:49 14:35 14:35 WBC 8.2 RBC 5.25 H Hgb 15.5 H Hct 46.2 H MCV 88 MCH 30 MCHC 34 RDW 15.3 H Plt Count 351 Lymph % (Auto) 48.4 H [place] % (Auto) 6.1 Eos % (Auto) 2.0 Baso % (Auto) 0.8 Lymph # 3.9 Wilkes # 0.5 Eos # 0.2 Baso # 0.1 Seg Neutrophils % 42.7 Seg Neutrophils # 3.5 Sodium 140 Potassium 4.2 Chloride 103.9 Carbon Dioxide 20 L Anion Gap 20 BUN 12 Creatinine 1.1 Estimated GFR > 60 BUN/Creatinine Ratio 11 Glucose 143 H Calcium 9.3 Phosphorus Magnesium Total Bilirubin 0.40 AST 19 ALT 21 Alkaline Phosphatase 94 Total Protein 7.4 Albumin 4.1 Albumin/Globulin Ratio 1.2 Urine Color Yellow Urine Turbidity Clear Urine pH 5.0 Ur Specific [place] 1.017 Urine Protein <15 mg/dl Urine Glucose (UA) Neg Urine Ketones Neg Urine Blood Neg Urine Nitrite Neg Urine Bilirubin Neg Urine Urobilinogen < 2.0 Ur Leukocyte Esterase Tr Urine WBC (Auto) 1.0 Urine RBC (Auto) 3.0 U Epithel Cells (Auto) 1.0 Urine Bacteria (Auto) 1+ Urine Mucus Few 04/30/19 14:35 WBC RBC Hgb Hct MCV MCH MCHC RDW Plt Count Lymph % (Auto) [place] % (Auto) Eos % (Auto) Baso % (Auto) Lymph # [place] # Eos # Baso # Seg Neutrophils % Seg Neutrophils # Sodium Potassium Chloride Carbon Dioxide Anion Gap BUN Creatinine Estimated GFR BUN/Creatinine Ratio Glucose Calcium Phosphorus 3.10 Magnesium 2.00 Total Bilirubin AST ALT Alkaline Phosphatase Total Protein Albumin Albumin/Globulin Ratio Urine Color Urine Turbidity Urine pH Ur Specific [place] Urine Protein Urine Glucose (UA) Urine Ketones Urine Blood Urine Nitrite Urine Bilirubin Urine Urobilinogen Ur Leukocyte Esterase Urine WBC (Auto) Urine RBC (Auto) U Epithel Cells (Auto) Urine Bacteria (Auto) Urine Mucus - Medical Decision Making elevated blood pressure: BP in ED 134/88, unclear of diagnosis. I provided education. Labs obtained per triage protocol within normal limits tension headache typical for patient unfortunately patient eloped from the department before appropriate disposition could be arranged Critical care attestation.: If time is entered above; I have spent that time in minutes in the direct care of this critically ill patient, excluding procedure time. ED Disposition Clinical Impression: Headache, Elevated blood pressure reading Disposition: ELOPED Is pt being admited?: No Does the pt Need Aspirin: No Condition: Stable
== END 2019-04-30 15:45 | disposition left against medical advice (07) ==
LOC: ED 10:56
DX: R03.0 Elevated blood-pressure reading, without diagnosis of hypertension (principal); R51 Headache; F17.200 Nicotine dependence, unspecified, uncomplicated; Z79.899 Other long term (current) drug therapy
CPT/HCPCS: 36415; 80053; 81001; 83735; 84100; 85025; 99283